=== PATIENT | female | born 1985 | race Caucasian/White ===

== ENCOUNTER 2020-10-20 14:03 | Emergency (ER) | payer SELFPAY ==
[~2020-10-20] VITALS: Ht 170.2 cm; Wt 76.2 kg
[2020-10-20 14:32] VITALS: BP 137/81
[2020-10-20] MEDS ORDERED: ACETAMINOPHEN 325 MG TAB PO ONE (14:55)
[2020-10-20] MEDS ORDERED: ONDANSETRON 4 MG/2 ML VIAL IVP ONE (14:55)
[2020-10-20] MEDS ORDERED: KETOROLAC 30 MG/ML VIAL IVP ONE (14:55)
[2020-10-20 15:20] LABS: BASOPHILS % (AUTO) 0.4 % (0.0-2.0); EOSINOPHILS # (AUTO) 0.1 K/uL (0-0.4); EOSINOPHILS % (AUTO) 1.1 % (0.0-4.0); HEMATOCRIT 39.5 % (36-48); HEMOGLOBIN 13.3 g/dL (12.0-16.0); LYMPHOCYTES # (AUTO) 1.5 K/uL (2.5-16.5); MEAN CORPUSCULAR HEMOGLOBIN 32 pg (27-31); MEAN CORPUSCULAR HGB CONC 34 g/dL (33-37); MEAN CORPUSCULAR VOLUME 94.2 fL (80-94); MONOCYTES # (AUTO) 0.6 K/uL (0.8-1.0); MONOCYTES % (AUTO) 8.3 % (1.7-9.3); NEUTROPHILS # (AUTO) 4.5 K/uL (1.8-7.7); NEUTROPHILS % (AUTO) 67.2 % (42.2-75.2); PLATELET COUNT (AUTO) 209 K/uL (140-450); RED BLOOD CELL COUNT(AUTO) 4.19 MIL/uL (4.20-5.40); RED CELL DISTRIBUTION WIDTH 14.2 % (11.6-13.7); WHITE BLOOD COUNT (AUTO) 6.7 K/uL (4.8-10.8)
[2020-10-20 15:35] LABS: ALBUMIN 4.3 g/dL (3.4-5.0); ANION GAP 12.2 (8-16); CREATININE 0.6 mg/dL (0.6-1.3); POTASSIUM 4.2 mmol/L (3.5-5.1); TOTAL BILIRUBIN 0.3 mg/dL (0.0-1.0)
[2020-10-20] MEDS ORDERED: ONDA-24 SL (16:53)
[2020-10-20 17:03] VITALS: BP 137/81
== END 2020-10-20 17:03 | disposition home or self-care (01) ==
LOC: MED 14:03
DX: R10.9 Unspecified abdominal pain (principal); Z79.899 Other long term (current) drug therapy; Z98.890 Other specified postprocedural states
CPT/HCPCS: 36415; 74177; 80053; 81002; 81025; 83690; 85025; 96374; 96375; 99285; J1885; J2405; Q9967